=== PATIENT | male | born 1960 | race Caucasian/White ===

== ENCOUNTER → 2023-07-11 | Outpatient (CLI) | payer OTHER ==
--- NOTE | 2023-07-11 11:28 | US ---
EXAMINATION TYPE: US arterial LE multi level DATE OF EXAM: 07/11/2023 11:16 AM CLINICAL INDICATION: Male, 62 years old with history of I70.213 ATHSCL [place] ARTERIES OF EXTRM W INT RMT NANO, BI L; CLAUDICATION History of: Smoker: Y Hypertension: BORDERLINE Diabetic: N Hyperlipidemia: N TIA/CVA: N Previous Vascular Surgery: N CAD: N IN: N Vascular Ulcers: N Claudication: N Gangrene: N Doppler Waveforms: Right: Multiphasic Left: Multiphasic Right Brachial Pressure: 155 Left Brachial Pressure: 163 Ankle-Brachial Indices: Right: 0.55 Left: 0.52 Toe Brachial Indices: Right: 0.48 Left: 0.56 IMPRESSION: Mild to moderate peripheral arterial disease bilaterally.
--- NOTE | 2023-07-11 13:22 | CTL ---
EXAMINATION TYPE: CT Low Dose Lung DATE OF EXAM ORDERED: 07/11/2023 HISTORY: Lung cancer screening CT DLP: 116.[address] CTDI: 3.2 mGy Automated exposure control for dose reduction was used. SCREENING VISIT: first COMPARISON: None TECHNIQUE: Low dose computed tomography scan was performed through the chest at 1 mm thick sections a nd reconstructed images in multiple planes at 1 mm and [address] DIAGNOSTIC QUALITY: Satisfactory FINDINGS: There is an 8 mm well-circumscribed partially calcified nodule in the left upper lobe consistent with a granuloma. No other suspicious lung masses or nodules are seen. There is no airspace consolidation or abnormal interstitial density. There is no pleural effusion or pneumothorax. There are a few calcified pleural based plaques on the right hemidiaphragm. There is no mediastinal, hilar or axillary adenopathy. There is atherosclerotic changes with calcifie d plaques thoracic aorta. Limited scanning through the upper abdomen reveals no gross abnormality. There are no focal osseous abnormalities IMPRESSION: 1. Lung RADS category 2 benign finding. Continue routine screening yearly intervals. 2. No acute cardiopulmonary disease. 3. Few scattered calcified pleural plaques the right lung base.
== END | disposition home or self-care (01) ==
LOC: RADCTMAIN 09:35
DX: Z12.2 Encounter for screening for malignant neoplasm of respiratory organs (principal); I70.213 Atherosclerosis of native arteries of extremities with intermittent claudication, bilateral legs; J98.4 Other disorders of lung; F17.210 Nicotine dependence, cigarettes, uncomplicated
CPT/HCPCS: 71271; 93923